=== PATIENT | male | born 1950 | race African-American/Black ===

== ENCOUNTER 2017-01-06 10:37 | Emergency (ER) | payer OTHER ==
[~2017-01-06] VITALS: Ht 177.8 cm; Wt 73.0 kg
[~2017-01-06 10:37] MED LIST: GLUCOPHAGE1000 MG PO; GLUCOTROL XL10 MG PO; PERCOCET 5/31 TABLET PO
[2017-01-06 11:06] LABS: POINT-OF-CARE METER ID UU13113778
[2017-01-06 11:52] LABS: EOSINOPHIL (%) 0.6 % (0-5); HEMATOCRIT 40.3 % (38.0-50.0); MCH 28.5 PG (29.0-34.0); MCHC 34.2 G/DL (30.0-36.0); MCV 83.1 FL (86-99); MEAN PLAT.VOLUME 9.8 uM^3 (9.0-12.4); MONOCYTE (%) 8.2 % (3-12); MONOCYTE COUNT 0.4 K/uL (0-0.8); NEUTROPHIL (%) 48.3 % (45-76); NEUTROPHIL COUNT 2.3 K/uL (1.8-6.4); PLATELET COUNT 200 K/uL (156-360); RBC DIS.WIDTH-CV 12.8 % (11.8-14.6); RBC DIS.WIDTH-SD 38.1 % (39-53); RED BLOOD COUNT 4.85 M/uL (4.00-5.50); WHITE BLOOD COUNT 4.8 K/uL (4.1-10.2)
[2017-01-06 12:00] LABS: CHLORIDE 103 mEq/L (99-109); POTASSIUM 3.8 mEq/L (3.7-5.4); SODIUM 142 mEq/L (136-147)
[2017-01-06 12:03] LABS: GLUCOSE 81 mg/dL (70-99)
[2017-01-06 12:04] LABS: ANION GAP 12 MEQ/L (2-14)
[2017-01-06 12:05] LABS: TOTAL BILIRUBIN 0.3 mg/dL (0.0-1.0)
[2017-01-06 12:06] LABS: ALKALINE PHOSPHATASE 60 IU/L (3-129); GFR ESTIMATE (CALCULATED) > 59 mL/min/
[2017-01-06 12:07] LABS: UREA NITROGEN (BUN) 12 mg/dL (9-23)
[2017-01-06 12:10] LABS: LIPASE 24 U/L (1.0-51.0)
[2017-01-06] MEDS ORDERED: BENTYL20 MG PO (13:39)
[2017-01-06 13:57] VITALS: BP 138/90
== END 2017-01-06 13:57 | disposition home or self-care (01) ==
LOC: EME 10:37
PROVIDERS: Emergency Medicine
DX: R10.10 Upper abdominal pain, unspecified (principal); E11.9 Type 2 diabetes mellitus without complications; Z79.84 Long term (current) use of oral hypoglycemic drugs
CPT/HCPCS: 74022; 80053; 82948; 83690; 85025; 99281; 99284

== ENCOUNTER 2017-05-19 15:59 | Emergency (ER) | payer OTHER ==
[~2017-05-19] VITALS: Ht 177.8 cm; Wt 66.9 kg
[~2017-05-19 15:59] MED LIST changes: +BENTYL20 MG PO
[2017-05-19 16:49] LABS: HEMATOCRIT 41.6 % (38.0-50.0); MCH 28.3 PG (29.0-34.0); MCHC 33.4 G/DL (30.0-36.0); MCV 84.7 FL (86-99); PLATELET COUNT 207 K/uL (156-360); RBC DIS.WIDTH-CV 12.7 % (11.8-14.6); RBC DIS.WIDTH-SD 39.2 % (39-53); RED BLOOD COUNT 4.91 M/uL (4.00-5.50); WHITE BLOOD COUNT 5.2 K/uL (4.1-10.2)
[2017-05-19 17:01] LABS: CHLORIDE 104 mEq/L (99-109); SODIUM 140 mEq/L (136-147)
[2017-05-19 17:02] LABS: GLUCOSE 196 mg/dL (70-99)
[2017-05-19 17:04] LABS: ANION GAP 9 MEQ/L (2-14)
[2017-05-19 17:06] LABS: GFR ESTIMATE (CALCULATED) > 59 mL/min/
[2017-05-19 17:07] LABS: UREA NITROGEN (BUN) 16 mg/dL (9-23)
[2017-05-19 17:10] LABS: TROP-I INTERPRETATION NEGATIVE; TROPONIN-I < 0.01 ng/mL (0.0-0.30)
[2017-05-19 18:06] VITALS: BP 115/74
[2017-05-19] MEDS ORDERED: OMEPRAZOLE40 M1 PO (18:38)
[2017-05-21] MEDS ORDERED: ZESTRIL2.5 MG PO (14:56)
[2017-05-21] MEDS ORDERED: ATORVASTATIN CA10 MG PO (14:56)
[2017-05-21] MEDS ORDERED: METFORMIN HCL1000 MG PO (14:57)
[2017-05-21] MEDS ORDERED: LEVEMIR FL100 UNIT/1 SC (15:01)
[2017-05-21] MEDS ORDERED: ASCORBIC ACID100 MG PO (15:01)
== END 2017-05-19 19:03 | disposition home or self-care (01) ==
LOC: EME 15:59
DX: R10.13 Epigastric pain (principal); E11.9 Type 2 diabetes mellitus without complications; Z79.84 Long term (current) use of oral hypoglycemic drugs
CPT/HCPCS: 71020; 80048; 84484; 85027; 93005; 99281; 99284

== ENCOUNTER → 2017-05-22 | Outpatient (CLI) | payer OTHER ==
[~2017-05-22] VITALS: Ht 172.7 cm; Wt 73.0 kg
[~2017-05-22] MED LIST changes: +ASCORBIC ACID100 MG PO; +ATORVASTATIN CA10 MG PO; +LEVEMIR FL100 UNIT/1 SC; +METFORMIN HCL1000 MG PO; +OMEPRAZOLE40 M1 PO; +ZESTRIL2.5 MG PO
[2017-05-22 07:51] LABS: POINT-OF-CARE METER ID UU14174212
== END | disposition home or self-care (01) ==
LOC: AMB 04-10 08:30 → OPR 04-10 10:30 → AMB 06:43
PROVIDERS: Internal Medicine
DX: K31.9 Disease of stomach and duodenum, unspecified (principal); K29.50 Unspecified chronic gastritis without bleeding; B96.81 Helicobacter pylori [H. pylori] as the cause of diseases classified elsewhere; Z53.09 Procedure and treatment not carried out because of other contraindication; R13.10 Dysphagia, unspecified; J30.9 Allergic rhinitis, unspecified; E11.65 Type 2 diabetes mellitus with hyperglycemia; K59.09 Other constipation; E78.5 Hyperlipidemia, unspecified; M51.36 Other intervertebral disc degeneration, lumbar region; Z79.4 Long term (current) use of insulin; Z79.84 Long term (current) use of oral hypoglycemic drugs; Z82.49 Family history of ischemic heart disease and other diseases of the circulatory system; Z83.3 Family history of diabetes mellitus
CPT/HCPCS: 82948; 88305; 88342 TC; J2250; J3010

== ENCOUNTER 2018-03-23 09:51 | Emergency (ER) | payer OTHER ==
[~2018-03-23] VITALS: Ht 175.3 cm; Wt 71.0 kg
[~2018-03-23 09:51] MED LIST changes: +ACTOS30 MG PO; +BD ULTRA-FINE1 EAC5 MC; +FLOVENT DISKUS1 DIS2 IH; +LIPITOR10 MG PO; +VITAMIN D-32000 UNI2 PO
[2018-03-23] MEDS ORDERED: MOTRIN800 MG PO (11:48)
[2018-03-23 12:13] VITALS: BP 133/87
== END 2018-03-23 12:18 | disposition home or self-care (01) ==
LOC: EME 09:51
DX: S20.212A Contusion of left front wall of thorax, initial encounter (principal); V49.40XA Driver injured in collision with unspecified motor vehicles in traffic accident, initial encounter; Y92.410 Unspecified street and highway as the place of occurrence of the external cause; E11.9 Type 2 diabetes mellitus without complications; Z79.4 Long term (current) use of insulin
CPT/HCPCS: 70450; 71046; 99281; 99285